=== PATIENT | male | born 1985 | race Caucasian/White ===

== ENCOUNTER 2018-06-30 15:25 | Inpatient (IN) ==
--- NOTE | 2018-06-30 19:28 | ED ---
HPI General Chief Complaint: Abdominal Pain Stated Complaint: Abdominal pain Time Seen by Provider: 06/30/18 19:15 Source: patient Mode of arrival: ambulatory Limitations: no limitations History of Present Illness HPI narrative: 33-year-old male complains abdominal pain. Patient states that he started having diffuse abdominal pain this morning. Patient states the pain more localized to right lower quadrant of the abdomen this afternoon and evening. Patient states the pain is stabbing pain constant pain. Patient denies any pain radiation. Patient denies any fever chills. Patient denies any nausea vomiting diarrhea. Patient denies any dysuria frequency. Patient denies any back pain. Patient denies any medical problems. Patient denies any allergy. Patient denies any alcohol or drug abuse. complaint: Reports abdominal pain Onset (ago): hour(s) Pain Consistency: constant Location: Reports RLQ Severity: moderate Severity scale (1-10): 7 Quality: Reports stabbing Radiation: Reports none Migration to: Reports RLQ Relieving factors: nothing Exacerbating factors: nothing Associated symptoms: Reports denies other symptoms Related Data Home Medications Medication Instructions Recorded Confirmed No Known Home Medications 06/30/18 06/30/18 Allergies Allergy/AdvReac Type Severity Reaction Status Date / Time No Known Allergies Allergy Verified 06/30/18 16:14 Review of Systems ROS: all other systems reviewed are negative PMFSH Medical History Medical History Patient denies medical problems (Acute) Surgical History Surgical History No history of previous surgery (Acute) Social History Social History Substance History: No History of Abuse Second Hand Smoke Exposure: No Smoking Status: Never smoker How Often Do You Have a Drink Containing Alcohol: 4 or more times a week Recent Travel in [facility] within the Last 8 Weeks: No Recent Out of Country Travel within the Last 8 Weeks: No Immunization History Tetanus Immunization: <5 Years Exam Narrative Exam Narrative: GENERAL: Well-nourished, well-developed patient. SKIN: Focused skin assessment warm/dry. HEAD: Normocephalic. EYES: No scleral icterus. No injection or drainage. NECK: Supple, trachea midline. No JVD or lymphadenopathy. CARDIOVASCULAR: Regular rate and rhythm without murmurs, gallops, or rubs. RESPIRATORY: Breath sounds equal bilaterally. No accessory muscle use. GASTROINTESTINAL: Abdomen soft, nondistended. Patient has moderate tenderness to palpation right lower quadrant of the abdomen. No rebound tenderness. No mass. MUSCULOSKELETAL: No cyanosis, or edema. BACK: Nontender without obvious deformity. No CVA tenderness. Course Initial Documented Vital Signs Temperature 98.9 F 06/30/18 16:12 Pulse Rate 62 06/30/18 16:12 Respiratory Rate 16 06/30/18 16:12 Blood Pressure 142/66 H 06/30/18 16:12 Pulse Oximetry 98 06/30/18 16:12 Last Documented Vital Signs Temperature 98.9 F 06/30/18 16:12 Pulse Rate 56 L 06/30/18 18:03 Respiratory Rate 16 06/30/18 18:03 Blood Pressure 114/56 L 06/30/18 18:03 Pulse Oximetry 99 06/30/18 18:03 Medical Decision Making MDM Narrative Medical decision making narrative: 33-year-old male with diffuse abdominal pain this morning now more localized to right lower quadrant of the abdomen this evening. Normal saline solution 125 cc an hour. Zosyn 3.375 g IV given. Medical Screen Exam Complete: Yes Emergency Medical Condition: Yes Differential Diagnosis Differential Diagnosis: Differential diagnosis including appendicitis, colitis, UTI, pyelonephritis, nephrolithiasis, musculoskeletal. Lab Data Lab results reviewed: Yes I reviewed the patient's lab results. Result diagrams: 06/30/18 19:30 06/30/18 19:30 Lab Results 06/30/18 06/30/18 06/30/18 Range/Units 19:30 19:30 19:35 WBC 15.8 H (4.0-11.0) th/mm3 RBC 5.01 (4.50-5.90) mil/mm3 Hgb 15.7 (13.0-17.0) gm/dL Hct 45.7 (39.0-51.0) % MCV 91.1 (80.0-100.0) fL MCH 31.3 (27.0-34.0) pg MCHC 34.3 (32.0-36.0) % RDW 13.2 (11.6-17.2) % Plt Count 213 (150-450) th/mm3 MPV 8.7 (7.0-11.0) fL Neut % (Auto) 87.8 H (16.0-70.0) % Lymph % (Auto) 5.4 L (9.0-44.0) % [place] % (Auto) 6.6 (0.0-8.0) % Eos % (Auto) 0.0 (0.0-4.0) % Baso % (Auto) 0.2 (0.0-2.0) % Neut # (Auto) 13.8 H (1.8-7.7) th/mm3 Lymph # (Auto) 0.9 L (1.0-4.8) th/mm3 [place] # (Auto) 1.0 H (0.0-0.9) th/mm3 Eos # (Auto) 0.0 (0.0-0.4) th/mm3 Baso # (Auto) 0.0 (0.0-0.2) th/mm3 WBC Differential . Differential Comment Auto diff final Sodium 134 L (136-145) meq/L Potassium 3.9 (3.5-5.1) meq/L Chloride 101 (98-107) meq/L Carbon Dioxide 25.7 (21.0-32.0) meq/L Anion Gap 7 (5-15) meq/L BUN 13 (7-18) mg/dL Creatinine 0.99 (0.60-1.30) mg/dL Estimated GFR 88 L (>89) mL/min Random Glucose 84 (74-106) mg/dL Calcium 9.3 (8.5-10.1) mg/dL Total Bilirubin 0.8 (0.2-1.0) mg/dL AST 34 (15-37) U/L ALT 33 (12-78) U/L Alkaline Phosphatase 63 (45-117) U/L Total Protein 7.8 (6.4-8.2) g/dL Albumin 4.4 (3.4-5.0) g/dL Lipase 126 (73-393) U/L Urine Color Straw (Yellw/Straw) Urine Clarity Clear (Clear) Urine pH 6.0 (5.0-8.5) Ur Specific [place] 1.002 (1.002-1.035) Urine Protein Negative (Neg-Trace) mg/dL Urine Glucose (UA) Negative (Negative) mg/dL Urine Ketones Trace H (Negative) mg/dL Urine Occult Blood Negative (Negative) Urine Nitrate Negative (Negative) Urine Bilirubin Negative (Negative) Urine Urobilinogen Less than 2 (Less than 2) mg/dL Ur Leukocyte Esterase Negative (Negative) Urine WBC Less than 1 (0-5) /hpf Micro UA Comment Culture not ind Ur Microscopic Review Not Reportable Urine Culture Comments Culture not ind Imaging Data Attestation: I personally reviewed and interpreted this imaging study as follows : Radiologist's impression: Abdomen/Pelvis CT 06/30/18 19:22 CONCLUSION: 1. Appendix is mildly enlarged at 11 mm in diameter with minimal periappendiceal inflammatory changes characteristic of a mild appendicitis. No abscess, obstruction, free fluid or free air. Discharge Plan Discharge Disposition Patient Disposition: ED Admit(ED Internal Use Only) Discharge Details Diagnosis: Acute appendicitis Physicians Team ED Provider: Jj Flores Primary Care Provider: Travis Almonte Rxs /Orders / Referrals /Forms Prescriptions: No Action No Known Home Medications RF: 0 Discharge Interventions Interventions: Vital Signs Last Done: 06/30/18 18:03 Status ED Status: With Doctor
[2018-06-30] MEDS ORDERED: Sod Chloride 0.9% Inj 1,000 ML IV.CONT SCH ×2 (19:30→23:45)
[2018-06-30 19:49] LABS: Baso % (Auto) 0.2 % (0.0-2.0); Hematocrit 45.7 % (39.0-51.0); Hemoglobin 15.7 gm/dL (13.0-17.0); Lymph # (Auto) 0.9 th/mm3 (1.0-4.8); Lymph % (Auto) 5.4 % (9.0-44.0); Mean Corpuscular HGB Conc 34.3 % (32.0-36.0); Mean Corpuscular Hemoglobin 31.3 pg (27.0-34.0); Mean Corpuscular Volume 91.1 fL (80.0-100.0); Mean Platelet Volume 8.7 fL (7.0-11.0); Mono % (Auto) 6.6 % (0.0-8.0); Neut # (Auto) 13.8 th/mm3 (1.8-7.7); Neut % (Auto) 87.8 % (16.0-70.0); Platelet Count 213 th/mm3 (150-450); Red Blood Count 5.01 mil/mm3 (4.50-5.90); Red Cell Distribution Width 13.2 % (11.6-17.2); White Blood Count 15.8 th/mm3 (4.0-11.0)
[2018-06-30 20:00] LABS: Bilirubin,Urine Negative (Negative); Clarity,Urine Clear (Clear); Glucose,Urine (UA) Negative (Negative); Leukocyte Esterase,Urine Negative (Negative); Nitrite,Urine Negative (Negative); Specific Gravity,Urine 1.002 (1.002-1.035)
[2018-06-30 20:01] LABS: Color,Urine Straw (Yellw/Straw)
[2018-06-30 20:15] LABS: Albumin 4.4 g/dL (3.4-5.0); Anion Gap 7 meq/L (5-15); Aspartate Aminotransferase 34 U/L (15-37); Blood Urea Nitrogen 13 mg/dL (7-18); Calcium 9.3 mg/dL (8.5-10.1); Carbon Dioxide 25.7 meq/L (21.0-32.0); Chloride 101 meq/L (98-107); Glomerular Filtration Rate 88 mL/min (>89); Glucose,Random 84 mg/dL (74-106); Lipase 126 U/L (73-393); Potassium 3.9 meq/L (3.5-5.1); Sodium 134 meq/L (136-145)
[2018-06-30 20:21] LABS: Alanine Aminotransferase 33 U/L (12-78); Alkaline Phosphatase 63 U/L (45-117); Total Protein 7.8 g/dL (6.4-8.2)
--- NOTE | 2018-06-30 21:11 | CT ---
EXAM DATE: 06/30/2018 9:02 PM EST AGE/SEX: 33 years / Male INDICATIONS: Right lower abdomen pain today CLINICAL DATA: This is the patient's initial encounter. Patient reports that signs and symptoms have been present for 1 day and indicates a pain score of 5/10. MEDICAL/SURGICAL HISTORY: None. None. ORAL CONTRAST: No oral contrast ingested. RADIATION DOSE: 6.64 CTDI (mGy) COMPARISON: No prior exams available for comparison. TECHNIQUE: Multiple contiguous axial images were obtained through the abdomen and pelvis following b olus infusion of 96ML ml Omnipaque 350 (iohexol) nonionic water-soluble contrast as a single exam d ose. No oral contrast ingested. Using automated exposure control and adjustment of the mA and/or kV according to patient size, radiation dose was kept as low as reasonably achievable to obtain optimal diagnostic quality images. DICOM format image data is available electronically for review and compar iliana. FINDINGS: Lung bases are clear. No acute findings in the liver, spleen, adrenals, kidneys or pancreas. 1.5 cm low-attenuation lesion right lobe may represent a small cysts or hemangioma in the liver. The appendix measures about 11 mm in diameter extends cephalad from the cecum as well as laterally. T here is some mild surrounding inflammatory change characteristic of a mild appendicitis. No abscess, obstruction, free fluid or free air. No pelvic masses. CONCLUSION: 1. Appendix is mildly enlarged at 11 mm in diameter with minimal periappendiceal inflammatory change s characteristic of a mild appendicitis. No abscess, obstruction, free fluid or free air. Electronically signed by: Brian Nogueira MD Board Certified Radiologist 06/30/2018 9:10 PM EST
[2018-06-30] MEDS ORDERED: Piperacil/Tazo 3.375 GM Premix 3.375 GM/50 ML PIGGYBACK IV.SIG ONE (21:30)
[2018-06-30] MEDS ORDERED: Bupivacaine/Epinephrine Inj 0.25% 50 ML Vial ONE (22:23)
--- NOTE | 2018-06-30 22:31 | P.HPGS ---
History of Present Illness Service: General Surgery Primary Care Physician: Travis Almonte MD Chief Complaint: Abdominal pain History of Present Illness: 33 yo M developed diffuse abdominal pain this morning which after 6 hrs or so localized to the right lower abdomen. It is only very painful when he moves. He has had anorexia but no other symptoms, denying N/V/F/C. No previous surgeries. PMH includes only "chronic dry eyes". He was evaluated in ED and noted to have leukocytosis and CT a/p consistent with acute appendicitis. - Diagnosis (1) Acute appendicitis Inpatient Certification: I certify that the inpatient services were ordered in accordance with Medicare regulations governing the order. This includes certification that hospital inpatient services are reasonable and necessary and in the case of services not specified as inpatient-only under 42 CFR 419.22(n), that they are appropriately provided as inpatient services in accordance to with the 2-midnight benchmark under 43 CFR 412.3(e) Review of Systems All other systems reviewed negative except as stated in HPI PMFSH - History History Provided By: Patient - Medical History Medical History: Medical History (Last Reviewed 06/30/18 @ 19:26 by Jj Flores MD) Patient denies medical problems - Surgical History Surgical History: Surgical History (Last Reviewed 06/30/18 @ 19:26 by Jj Flores MD) No history of previous surgery - Tobacco History Second Hand Smoke Exposure: No Smoking Status: Never smoker - Alcohol History How Often Do You Have a Drink Containing Alcohol: 4 or more times a week - Substance Use History Substance History: No History of Abuse - Travel History Recent Travel in the [facility] Within the Last 8 Weeks: No Recent Travel Out of the Country Within the Last 8 Weeks: No - Immunization History Tetanus Immunization: <5 Years Medications and Allergies Active Medications: Active Medications Sodium Chloride (Ns Inj) 1,000 mls @ 125 mls/hr IV.CONT .Q8H VIGNESH Stop: 07/01/18 03:29 Last Admin: 06/30/18 19:43 Dose: 125 mls/hr Sodium Chloride (Ns Flush) 2 ml IV.FLUSH PRN PRN PRN Reason: FLUSH AFTER USING IV ACCESS Allergies Allergy/AdvReac Type Severity Reaction Status Date / Time No Known Allergies Allergy Verified 06/30/18 16:14 Home Medications Medication Instructions Recorded Confirmed Type No Known Home Medications 06/30/18 06/30/18 History Exam Vital signs: Vital Signs 06/30/18 16:12 06/30/18 18:03 Temperature 98.9 F Pulse Rate 62 56 L Respiratory Rate 16 16 Blood Pressure 142/66 H 114/56 L Pulse Oximetry 98 99 Intake & Output 06/30/18 06/30/18 07/01/18 06:59 18:59 06:59 Weight 89.358 kg Narrative: GENERAL: Awake and alert. No acute distress. Cooperative. HEAD: Normocephalic. Atraumatic. EYES: Pupils equal round and reactive to light bilaterally. No scleral icterus. ENT: Moist oral mucosa. NECK: Trachea midline. CHEST: Nonlabored breathing. No respiratory distress. CARDIOVASCULAR: Regular rate and rhythm. ABDOMEN: soft. No rebound or guarding. Moderate ttp in right lateral abdomen/ right flank. EXTREMITIES: No cyanosis or edema. SKIN: Warm, dry, nonjaundiced. Results - Labs 06/30/18 19:30 06/30/18 19:30 Laboratory Results - last 24 hr 06/30/18 06/30/18 06/30/18 19:30 19:30 19:35 WBC 15.8 H RBC 5.01 Hgb 15.7 Hct 45.7 MCV 91.1 MCH 31.3 MCHC 34.3 RDW 13.2 Plt Count 213 MPV 8.7 Neut % (Auto) 87.8 H Lymph % (Auto) 5.4 L [place] % (Auto) 6.6 Eos % (Auto) 0.0 Baso % (Auto) 0.2 Neut # (Auto) 13.8 H Lymph # (Auto) 0.9 L [place] # (Auto) 1.0 H Eos # (Auto) 0.0 Baso # (Auto) 0.0 WBC Differential . Differential Comment Auto diff final Sodium 134 L Potassium 3.9 Chloride 101 Carbon Dioxide 25.7 Anion Gap 7 BUN 13 Creatinine 0.99 Estimated GFR 88 L Random Glucose 84 Calcium 9.3 Total Bilirubin 0.8 AST 34 ALT 33 Alkaline Phosphatase 63 Total Protein 7.8 Albumin 4.4 Lipase 126 Urine Color Straw Urine Clarity Clear Urine pH 6.0 Ur Specific [place] 1.002 Urine Protein Negative Urine Glucose (UA) Negative Urine Ketones Trace H Urine Occult Blood Negative Urine Nitrate Negative Urine Bilirubin Negative Urine Urobilinogen Less than 2 Ur Leukocyte Esterase Negative Urine WBC Less than 1 Micro UA Comment Culture not ind Ur Microscopic Review Not Reportable Urine Culture Comments Culture not ind - Imaging Imaging: ITS Impressions Abdomen/Pelvis CT 06/30/18 19:22 CONCLUSION: 1. Appendix is mildly enlarged at 11 mm in diameter with minimal periappendiceal inflammatory changes characteristic of a mild appendicitis. No abscess, obstruction, free fluid or free air. CT scan - abdomen: report reviewed, image reviewed CT scan - pelvis: report reviewed, image reviewed Caprini VTE Risk Assessment Caprini VTE Risk Assessment: No/Low Risk (score <= 1) Caprini Risk Assessment Model: Point Value = 1 Point Value = 2 Point Value = 3 Point Value = 5 Age 41-60 Minor surgery BMI > 25 kg/m2 Swollen legs Varicose veins or History of unexplained or recurrent spontaneous Oral contraceptives or hormone replacement Sepsis (< 1 month) Serious lung disease, including pneumonia (< 1 month) Abnormal pulmonary function Acute myocardial infarction Congestive heart failure (< 1 month) History of inflammatory bowel disease Medical patient at bed rest Age 61-74 Arthroscopic surgery Major open surgery (> 45 min) Laparoscopic surgery (> 45 min) Malignancy Confined to bed (> 72 hours) Immobilizing plaster cast Central venous access Age >= 75 History of VTE Family history of VTE Factor V Leiden Prothrombin [id number] Lupus anticoagulant Anticardiolipin antibodies Elevated serum homocysteine Heparin-induced thrombocytopenia Other congenital or acquired thrombophilia Stroke (< 1 month) Elective arthroplasty Hip, pelvis, or leg fracture Acute spinal cord injury (< 1 month) Prophylaxis Regimen: Total Risk Factor Score Risk Level Prophylaxis Regimen 0-1 Low Early ambulation 2 Moderate Order ONE of the following: *Sequential Compression Device (SCD) *Heparin 5000 units SQ BID 3-4 Higher Order ONE of the following medications: *Heparin 5000 units SQ TID *Enoxaparin/Lovenox 40 mg SQ daily (WT < 150 kg, CrCl > 30 mL/min) *Enoxaparin/Lovenox 30 mg SQ daily (WT < 150 kg, CrCl > 10-29 mL/min) *Enoxaparin/Lovenox 30 mg SQ BID (WT < 150 kg, CrCl > 30 mL/min) AND/OR *Sequential Compression Device (SCD) 5 or more Highest Order ONE of the following medications: *Heparin 5000 units SQ TID (Preferred with Epidurals) *Enoxaparin/Lovenox 40 mg SQ daily (WT < 150 kg, CrCl > 30 mL/min) *Enoxaparin/Lovenox 30 mg SQ daily (WT < 150 kg, CrCl > 10-29 mL/min) *Enoxaparin/Lovenox 30 mg SQ BID (WT < 150 kg, CrCl > 30 mL/min) AND *Sequential Compression Device (SCD) Assessment and Plan - Assessment (1) Acute appendicitis Code(s): K35.80 - Unspecified acute appendicitis Status: Acute Qualifiers: Acute appendicitis type: with localized peritonitis Appendicitis gangrene presence: without gangrene Appendicitis perforation presence: without perforation Appendicitis abscess presence: without abscess Qualified Code(s) : K35.30 - Acute appendicitis with localized peritonitis, without perforation or gangrene - Plan Recommend to proceed with laparoscopic appendectomy, possible open. Discussed risks and details of procedure with patient and his mother. He desires to proceed.
[2018-06-30] MEDS ORDERED: HYDROmorphone PF Inj 1 MG/ML Ampul IV.PUSH PRN (23:38)
[2018-06-30] MEDS ORDERED: Naloxone Inj 0.4 MG/ML Vial IV.PUSH PRN (23:38)
[2018-06-30] MEDS ORDERED: Post-op Orders (for Pharmacy) OTHER ONE (23:38)
--- NOTE | 2018-06-30 23:38 | P.OP ---
- Preoperative Diagnosis (1) Acute appendicitis - Postoperative Diagnosis (1) Acute appendicitis Date of procedure: 06/30/18 Procedure: Laparoscopic appendectomy Anesthesia: ANIL Surgeon: Yao Espinosa MD Comb Setter: Juan WILSON Estimated blood loss (mL): 5 Pathology: other (appendix) Operation and Findings: EBL: 5 cc Complications: None apparent Operative findings: Distended inflamed appendix. Procedure in detail: The patient was taken to the operating room placed in the supine position with left arm tucked. General endotracheal anesthesia was induced and the abdomen was prepped and draped in usual sterile fashion. Surgical timeout was performed to verify correct patient procedure and site. Perioperative antibiotics were administered as necessary. Local anesthetic was injected in the skin and subcutaneous tissue superior to the umbilicus and a 5 mm incision made. Using the 5 mm Optiview trocar with the laparoscope in place the abdomen was directly entered. The abdomen was then insufflated to 15 mmHg with CO2 gas which the patient tolerated well. The patient was then placed in Trendelenburg position and turned slightly to the left. A 5 mm port was placed under laparoscopic visualization in the left lower quadrant and a 12 mm port in the suprapubic area. Attention was turned to the right abdomen. The appendix was in the right upper quadrant along the lateral abdominal wall. It was distended and inflamed in the midportion. The mesoappendix was taken down with the Harmonic scalpel. Two #1 PDS Endoloops were placed at the base the appendix and the appendix was transected with Harmonic scalpel. It was then removed using an Endo Catch bag. The appendiceal stump was intact with no leakage. The right upper quadrant and pelvis were irrigated of a small amt of cloudy fluid which was present. The abdomen was allowed to desufflate. The fascia at the 12 mm port site was closed with a 0 Vicryl suture using laparoscopic fascial closure device. Skin closed with subcuticular Monocryl as well as Dermabond. The patient tolerated the procedure well was extubated and taken to PACU in stable condition.
[2018-06-30] MEDS ORDERED: *Meperidine Inj 25 MG/ML Vial PERIprocedural Use ONLY ONE (23:46)
[2018-06-30] MEDS ORDERED: fentaNYL Citrate Inj 100 MCG/2 ML Ampul ONE (23:53)
[2018-06-30] MEDS ORDERED: Morphine Inj 4 MG/ML Vial ONE (23:54)
[2018-06-30] MEDS ORDERED: *morphine SULFATE 4 MG/ML PERIprocedure ONLY ONE (23:59)
[2018-07-01] MEDS ORDERED: *morphine SULFATE 4 MG/ML PERIprocedure ONLY ONE (00:29)
[2018-07-01] MEDS: Ketorolac Inj 30 MG/ML (IVP) Vial IV.PUSH SCH ×3 (00:30→12:19)
[2018-07-01 05:34] VITALS: O2SAT 98
[2018-07-01 10:20] VITALS: RESP 14
--- NOTE | 2018-07-01 12:18 | P.PNGS ---
Subjective Interval history: Mandy diet. Pain controlled. No nausea. Physical Exam Vital signs: Vital Signs 06/30/18 16:12 06/30/18 18:03 06/30/18 23:58 Temperature 98.9 F 98.6 F Pulse Rate 62 56 L 67 Respiratory Rate 16 16 14 Blood Pressure 142/66 H 114/56 L 132/62 Pulse Oximetry 98 99 98 07/01/18 00:00 07/01/18 00:15 07/01/18 00:30 Temperature 98.6 F 98.6 F 98.6 F Pulse Rate 78 67 75 Respiratory Rate 14 14 14 Blood Pressure 135/60 136/69 127/62 Pulse Oximetry 97 97 97 07/01/18 00:45 07/01/18 01:04 07/01/18 01:28 Temperature 98.6 F 98.2 F Pulse Rate 67 64 Respiratory Rate 14 18 14 Blood Pressure 122/62 140/71 Pulse Oximetry 94 L 96 07/01/18 01:29 07/01/18 01:44 07/01/18 04:26 Temperature 97.9 F Pulse Rate 62 Respiratory Rate 14 18 17 Blood Pressure 131/62 Pulse Oximetry 98 07/01/18 08:00 Temperature 97.8 F Pulse Rate 60 Respiratory Rate 14 Blood Pressure 126/62 Pulse Oximetry 98 Intake & Output 06/30/18 07/01/18 07/01/18 18:59 06:59 18:59 Intake Total 2300 / 2300 Output Total 305 / 305 Balance 1994 Weight 89.358 kg 92.7 kg Intake: IV 1000 / 1000 NS Inj 1,000 ML @ 125 mls/hr IV 1000 / 1000 .CONT .Q8H [facility] Rx#:[id number] Oral 300 / 300 Anesthesia Amount 1000 / 1000 Output: Urine 300 / 300 Estimated Blood Loss 5 / 5 Other: Date of Last Bowel Movement 07/01/18 06/30/18 Weight On Admission 89.358 kg Narrative: NAD Maria Teresa soft, post op ttp, inc c/d/i Results - Labs 06/30/18 19:30 06/30/18 19:30 Laboratory Results - last 24 hr 06/30/18 06/30/18 06/30/18 19:30 19:30 19:35 WBC 15.8 H RBC 5.01 Hgb 15.7 Hct 45.7 MCV 91.1 MCH 31.3 MCHC 34.3 RDW 13.2 Plt Count 213 MPV 8.7 Neut % (Auto) 87.8 H Lymph % (Auto) 5.[address] [place] % (Auto) 6.6 Eos % (Auto) 0.0 Baso % (Auto) 0.2 Neut # (Auto) 13.8 H Lymph # (Auto) 0.[address] [place] # (Auto) 1.0 H Eos # (Auto) 0.0 Baso # (Auto) 0.0 WBC Differential . Differential Comment Auto diff final Sodium 134 L Potassium 3.9 Chloride 101 Carbon Dioxide 25.7 Anion Gap 7 BUN 13 Creatinine 0.99 Estimated GFR 88 L Random Glucose 84 Calcium 9.3 Total Bilirubin 0.8 AST 34 ALT 33 Alkaline Phosphatase 63 Total Protein 7.8 Albumin 4.4 Lipase 126 Urine Color Straw Urine Clarity Clear Urine pH 6.0 Ur Specific [place] 1.002 Urine Protein Negative Urine Glucose (UA) Negative Urine Ketones Trace H Urine Occult Blood Negative Urine Nitrate Negative Urine Bilirubin Negative Urine Urobilinogen Less than 2 Ur Leukocyte Esterase Negative Urine WBC Less than 1 Micro UA Comment Culture not ind Ur Microscopic Review Not Reportable Urine Culture Comments Culture not ind - Imaging Imaging: ITS Impressions Abdomen/Pelvis CT 06/30/18 19:22 CONCLUSION: 1. Appendix is mildly enlarged at 11 mm in diameter with minimal periappendiceal inflammatory changes characteristic of a mild appendicitis. No abscess, obstruction, free fluid or free air. Assessment and Plan - Assessment (1) Acute appendicitis Code(s): K35.80 - Unspecified acute appendicitis Status: Acute - Plan POD 1 s/p lap appy. Stable doing well. D/c home. Reg diet. Activity- ok to shower. Stable. F/u two weeks. Rx for ketorolac. (1) Acute appendicitis Qualifiers: Acute appendicitis type: with localized peritonitis Appendicitis gangrene presence: without gangrene Appendicitis perforation presence: without perforation Appendicitis abscess presence: without abscess Qualified Code(s): K35.30 - Acute appendicitis with localized peritonitis, without perforation or gangrene
[2018-07-01 14:37] VITALS: BP 120/57; PULSE 53; TEMP 97.9
== END 2018-07-01 15:07 | disposition home or self-care (01) | DRG 343 ==
LOC: NEPD 15:25 → NEDA 21:41 → N06 07-01 00:57
PROVIDERS: ADMIT Surgery; ATTEND Surgery
PROC: LAPAPPY (ICD-10-PCS; 2018-06-30 22:46)
CPT/HCPCS: 74177; 80053; 81001; 83690; 85025; 88304; 94150; J1170; J1885; J2175; J2250; J2270; J2405; J3010; J7030; Q9967